=== PATIENT | male | born 1995 | race Caucasian/White ===

== ENCOUNTER 2018-11-24 16:53 | Emergency (ER) | payer MEDICAID, SELFPAY ==
[2018-11-24 16:56] VITALS: BP 124/70; PULSE 82; RESP 16; TEMP 36.6; O2SAT 100
--- NOTE | 2018-11-24 17:02 | W.ED.GENAD ---
Discharge Plan Disposition Patient Disposition: HOME Condition: Stable Discharge Details Chief Complaint: Laceration Clinical Impression: Laceration of hand, right Primary Care Provider: Rubens Ferrell ED Provider: Nikhil Pinon Home Meds and New Rx's Prescriptions: No Action No Known Home Meds RF: 0 Discharge Instructions Instructions: Skin Adhesive Care (ED) Medical Decision Making 23 yo male states he was at work and right hand was injured with drill bit, caused a 1cm v shaped lesion on the palmar surface that is superficial and I was able to close with dermbabond after irrigation. He also has a skin tear to the right middle finger that is not closable with sutures given it is not a lac but a skin tear, located between dip and pip joint. Has full rom of the hand and intact sensation. I placed dermbond to cover this to help control bleeding. Will d/c home, return precations for evidence of infection given Differential Diagnosis laceration, skin tear HPI General Mode of arrival: ambulatory. Date/Time Provider Initiated Documentation: 11/24/18 17:01. Limitations to Documentation: no limitations. Information obtained by: patient. History of Present Illness 23 year old M presents to the emergency department with the chief complaint of right hand injury, described as moderate, Quality is described as aching, and is localized to the right and upper extremity. Patient reports no radiation. Patient started experiencing this hour(s) (1) and it has been constant. Rest improves symptom(s), Movement worsens symptoms . Patient notes no other symptoms.. Patient did receive the following treatments prior to arrival, none Related Data Home Medications Medication Instructions Recorded Confirmed Unknown [No Known Home Meds] 05/24/13 11/24/18 Allergies Allergy/AdvReac Type Severity Reaction Status Date / Time No Known Allergies Allergy Unverified 11/24/18 17:01 General Stated Complaint: Laceration REED: 4 Review of Systems Review of Systems All systems reviewed & are unremarkable except as noted in HPI and below Constitutional Denies chills, Denies fever(s) and Denies weakness Cardiovascular Denies chest pain and Denies dyspnea Respiratory Denies cough and Denies dyspnea Gastrointestinal Denies abdominal pain, Denies nausea and Denies vomiting Integumentary/Breasts Denies rash Neurologic Denies weakness [facility] Social History Smoking/Tobacco Use Status: Never Drug use: Never Do you feel safe at home: Yes Do you feel safe in your relationship?: Yes Exam Const General: no acute distress Orientation: alert HENMT Head: normal to inspection Ears: external ears normal General nose exam: external nose normal Mouth: moist mucous membranes Eyes General: appearance normal, both eyes and all related structures Neck Neck: normal visual inspection Resp Effort & Inspection: normal respiratory effort and able to speak in complete sentences Cardio Rate: regular rate Skin General skin exam: no rashes or lesions noted Neuro General: alert and oriented x3 Extrem General: full ROM and normal capillary refill Psych Mental Status: mental status grossly normal Course Vital Signs Temperature 36.6 C 11/24/18 16:56 Pulse 82 11/24/18 16:56 Respiratory Rate 16 11/24/18 16:56 Blood Pressure 124/70 11/24/18 16:56 Pulse Oximetry 100 11/24/18 16:56 Temperature 36.6 C 11/24/18 16:56 Temperature Source Skin 11/24/18 16:56 Pulse 82 11/24/18 16:56 Respiratory Rate 16 11/24/18 16:56 Respiratory Effort Non-Labored 11/24/18 17:00 Blood Pressure 124/70 11/24/18 16:56 Blood Pressure Position Sitting 11/24/18 16:56 Pulse Oximetry 100 11/24/18 16:56 Oxygen Delivery Method Room Air 11/24/18 16:56 Oxygen Flow Rate 0 11/24/18 16:56 Pain Level 3 11/24/18 16:56 Procedures Laceration Laceration 1: Site: hand Side (If applicable): right Size (cm): 1 Description: stellate Depth: simple, single layer Local Anesthetic: Lidocaine 1% and with Epi Amount of anesthesia used (mL): 4 Pre-repair: irrigated extensively Skin layer closed with: other (skin adhesive)
--- NOTE | 2018-11-24 17:12 | ED.GENADUL_ITS ---
Discharge Plan Disposition Patient Disposition: HOME Condition: Stable Discharge Details Chief Complaint: Laceration Clinical Impression: Laceration of hand, right Primary Care Provider: Rubens Ferrell ED Provider: Nikhil Pinon Home Meds and New Rx's Prescriptions: No Action No Known Home Meds RF: 0 Discharge Instructions Instructions: Skin Adhesive Care (ED) Medical Decision Making 23 yo male states he was at work and right hand was injured with drill bit, caused a 1cm v shaped lesion on the palmar surface that is superficial and I was able to close with dermbabond after irrigation. He also has a skin tear to the right middle finger that is not closable with sutures given it is not a lac but a skin tear, located between dip and pip joint. Has full rom of the hand and intact sensation. I placed dermbond to cover this to help control bleeding. Will d/c home, return precations for evidence of infection given Differential Diagnosis laceration, skin tear HPI General Mode of arrival: ambulatory . Date/Time Provider Initiated Documentation: 11/24/18 17:01 . Limitations to Documentation: no limitations . Information obtained by: patient . History of Present Illness 23 year old M presents to the emergency department with the chief complaint of right hand injury, described as moderate, Quality is described as aching, and is localized to the right and upper extremity. Patient reports no radiation. Patient started experiencing this hour(s) (1) and it has been constant. Rest improves symptom(s), Movement worsens symptoms . Patient notes no other symptoms.. Patient did receive the following treatments prior to arrival, none Related Data Home Medications Medication Instructions Recorded Confirmed Unknown [No Known Home Meds] 05/24/13 11/24/18 Allergies Allergy/AdvReac Type Severity Reaction Status Date / Time No Known Allergies Allergy Unverified 11/24/18 17:01 General Stated Complaint: Laceration REED: 4 Review of Systems Review of Systems All systems reviewed & are unremarkable except as noted in HPI and below Constitutional Denies chills, Denies fever(s) and Denies weakness Cardiovascular Denies chest pain and Denies dyspnea Respiratory Denies cough and Denies dyspnea Gastrointestinal Denies abdominal pain, Denies nausea and Denies vomiting Integumentary/Breasts Denies rash Neurologic Denies weakness [facility] Social History Smoking/Tobacco Use Status: Never Drug use: Never Do you feel safe at home: Yes Do you feel safe in your relationship?: Yes Exam Const General: no acute distress Orientation: alert HENMT Head: normal to inspection Ears: external ears normal General nose exam: external nose normal Mouth: moist mucous membranes Eyes General: appearance normal, both eyes and all related structures Neck Neck: normal visual inspection Resp Effort & Inspection: normal respiratory effort and able to speak in complete sentences Cardio Rate: regular rate Skin General skin exam: no rashes or lesions noted Neuro General: alert and oriented x3 Extrem General: full ROM and normal capillary refill Psych Mental Status: mental status grossly normal Course Vital Signs Temperature 36.6 C 11/24/18 16:56 Pulse 82 11/24/18 16:56 Respiratory Rate 16 11/24/18 16:56 Blood Pressure 124/70 11/24/18 16:56 Pulse Oximetry 100 11/24/18 16:56 Temperature 36.6 C 11/24/18 16:56 Temperature Source Skin 11/24/18 16:56 Pulse 82 11/24/18 16:56 Respiratory Rate 16 11/24/18 16:56 Respiratory Effort Non-Labored 11/24/18 17:00 Blood Pressure 124/70 11/24/18 16:56 Blood Pressure Position Sitting 11/24/18 16:56 Pulse Oximetry 100 11/24/18 16:56 Oxygen Delivery Method Room Air 11/24/18 16:56 Oxygen Flow Rate 0 11/24/18 16:56 Pain Level 3 11/24/18 16:56 Procedures Laceration Laceration 1: Site: hand Side (If applicable): right Size (cm): 1 Description: stellate Depth: simple, single layer Local Anesthetic: Lidocaine 1% and with Epi Amount of anesthesia used (mL): 4 Pre-repair: irrigated extensively Skin layer closed with: other (skin adhesive)
[2018-11-24 17:44] VITALS: BP 124/70; PULSE 82; RESP 16; TEMP 36.6; O2SAT 100
== END 2018-11-24 17:41 | disposition home or self-care (01) ==
LOC: ER 17:43
PROVIDERS: Emergency Provider Emergency Medicine; PCP Pediatrics
DX: S61.411A Laceration without foreign body of right hand, initial encounter (principal); S61.212A Laceration without foreign body of right middle finger without damage to nail, initial encounter; W31.1XXA Contact with metalworking machines, initial encounter
CPT/HCPCS: 12001

== ENCOUNTER 2019-01-15 09:14 | Emergency (ER) | payer MEDICAID, SELFPAY ==
[2019-01-15 09:17] VITALS: BP 121/68; PULSE 95; RESP 12; TEMP 36.3; O2SAT 99
--- NOTE | 2019-01-15 09:27 | DI.RAD_ITS ---
SYMPTOM/DIAGNOSIS: PUNCTURE WOUND, ? METALLIC FOREIGN BODY RIGHT ELBOW: There is a 5 mm. radiopaque foreign body in the soft tissues of the anterior lateral right elbow. It lies at the level of the lateral epicondyle. No bone or joint abnormality is identified. IMPRESSION: 5 mm. radiopaque foreign body in the anterior lateral soft tissues of the elbow.
--- NOTE | 2019-01-15 09:32 | ED.GENADUL_ITS ---
Discharge Plan Disposition Patient Disposition: HOME Discharge Details Chief Complaint: Laceration Primary Care Provider: Rubens Ferrell ED Provider: All Nevarez Home Meds and New Rx's Prescriptions: No Action No Known Home Meds RF: 0 Discharge Data Discharge Date/Time-TO BE ENTERED AT DEPARTURE: 01/15/19 10:45 Medical Decision Making Patient presenting to the emergency department for chief complaint of puncture wound. 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 He stated instantly afterwards he had paresthesia to the skin of the upper forearm but otherwise states full movement and mild amount of discomfort. Physical exam shows a small puncture wound to the proximal forearm corresponding with the radius and diffuse paresthesia to the dorsal forearm but beyond cutaneous paresthesia neuromuscular, other sensory, range of motion and movement is intact. Plan to do radiological imaging to evaluate for radiopaque foreign body. Radiological imaging does show a metallic foreign body that is present in the arm. Bedside ultrasound was utilized and it appears that this foreign body is at least 1 inch above the puncture site. Given nerve involvement I did call and speak with Dr. Olmos in regards to foreign body removal or other recommendations. He recommended for patient to keep wound clean and dry, return precautions for infection, otherwise to follow-up in their office for excision once foreign body has encapsulated. Patient's tetanus is up-to-date. This was all discussed with patient and patient was in agreement with this plan. After discussion of diagnosis and plan of care patient has no further needs, questions, or concerns and states clear understanding to return to the emergency department for any worsening symptoms. HPI General Mode of arrival: ambulatory . Date/Time Provider Initiated Documentation: 01/15/19 09:21 . Limitations to Documentation: no limitations . Information obtained by: patient and RN notes reviewed . History of Present Illness 23 year old M presents to the emergency department with the chief complaint of puncture wound right elbow, described as mild, with intensity rated at 2. Quality is described as sharp, and is localized to the right and upper extremity. Patient started experiencing this hour(s) (1) and it has been constant. Patient notes no other symptoms.. Patient did receive the following treatments prior to arrival, none Related Data Home Medications Medication Instructions Recorded Confirmed Unknown [No Known Home Meds] 05/24/13 01/15/19 Allergies Allergy/AdvReac Type Severity Reaction Status Date / Time No Known Allergies Allergy Unverified 01/15/19 09:23 General Stated Complaint: Laceration REED: 4 Review of Systems Cardiovascular Denies syncope and Denies lightheadedness Musculoskeletal Denies deformity, Denies limited range of motion and Denies numbness Integumentary/Breasts Reports as per HPI Neurologic Denies syncope, Denies numbness and Reports paresthesias PFS Social History Smoking/Tobacco Use Status: Never Alcohol Intake: current Alcohol Intake frequency: a few times a week Alcohol type: beer Drug use: Never Do you feel safe at home: Yes Do you feel safe in your relationship?: Yes Exam Const General: cooperative and no acute distress Orientation: alert, awake and oriented x3 Limitations: mental status not altered Resp Effort & Inspection: normal respiratory effort and able to speak in complete sentences Extrem Right upper extremity: shoulder/upper arm Details: normal to inspection and normal ROM; no tenderness, elbow/forearm Details: normal ROM, laceration (5mm to lateral elbow) and distal pulses intact; no tenderness, no ecchymosis and no deformity and wrist Details: normal to inspection, normal ROM and normal vascular exam; no tenderness, no abrasions and no lacerations Course Vital Signs Temperature 36.3 C L 01/15/19 09:17 Pulse 95 H 01/15/19 09:17 Respiratory Rate 12 01/15/19 09:17 Blood Pressure 121/68 01/15/19 09:17 Pulse Oximetry 99 01/15/19 09:17 Temperature 36.3 C L 01/15/19 09:17 Temperature Source Skin 01/15/19 09:17 Pulse 95 H 01/15/19 09:17 Respiratory Rate 12 01/15/19 09:17 Respiratory Effort 01/15/19 09:24 Blood Pressure 121/68 01/15/19 09:17 Blood Pressure Position Sitting 01/15/19 09:17 Pulse Oximetry 99 01/15/19 09:17 Oxygen Delivery Method Room Air 01/15/19 09:17 Oxygen Flow Rate 0 01/15/19 09:17 Pain Level 2 01/15/19 09:29 Comment 01/15/19 09:17
== END 2019-01-15 10:45 | disposition home or self-care (01) ==
PROVIDERS: Emergency Provider Nurse Practitioner Family; PCP Pediatrics
DX: S51.031A Puncture wound without foreign body of right elbow, initial encounter (principal); W45.8XXA Other foreign body or object entering through skin, initial encounter
CPT/HCPCS: 99283; 73070; 99282

== ENCOUNTER 2023-03-31 13:39 | Outpatient (CLI) | payer BC, SELFPAY ==
[2023-03-31 13:52] LABS: Abs Immature Grans 0.07 10^3/uL (0.0-0.06); Absolute Basophil Count 0.04 10^3/uL (0.0-0.2); Absolute Eosinophil Count 0.11 10^3/uL (0.0-0.7); Absolute Lymphocyte Count 1.54 10^3/uL (1.2-3.4); Absolute Neutrophil Count 4.77 10^3/uL (1.2-6.7); Basophils % 0.6; Eosinophils % 1.6; HCT 47.5 % (40.0-50.0); HGB 16.2 g/dL (13.5-17.5); Lymphocytes % 22.2; MCH 29.5 pg (27.0-33.0); MCHC 34.1 % (32.0-36.0); MCV 86 fL (80-95); MPV 9.1 fL (8.0-11.0); Monocytes % 5.8; Neutrophils % 68.8; Platelet Count 296 10^3/uL (130-400); RDW 13.1 % (11.8-14.1); WBC 6.93 10^3/uL (4.4-10.8)
[2023-03-31 14:13] LABS: C-Reactive Protein < 0.05 mg/dL (0.0-0.3)
== END 2023-03-31 13:40 | disposition home or self-care (01) ==
LOC: LBO 13:41
PROVIDERS: Visit Provider Surgery
DX: K62.5 Hemorrhage of anus and rectum (principal)
CPT/HCPCS: 36415; 85025; 86140

== ENCOUNTER 2025-05-04 21:16 | Outpatient (REF) | payer SELFPAY ==
[2025-05-04 22:17] LABS: TSH (W/Ref FT4) 2.08 uIU/mL (0.36-3.74)
== END 2025-05-04 21:17 | disposition home or self-care (01) ==
LOC: LBN 21:16
PROVIDERS: Visit Provider Nurse Practitioner Family
DX: F41.9 Anxiety disorder, unspecified (principal); F32.A Depression, unspecified
CPT/HCPCS: 84443